=== PATIENT | male | born 1990 | race Caucasian/White ===

== ENCOUNTER 2021-08-21 14:09 | Emergency (ER) | payer OTHER ==
[~2021-08-21] VITALS: Ht 180.3 cm; Wt 130.2 kg
== END 2021-08-21 15:53 | disposition home or self-care (01) ==
LOC: ED 14:09
DX: B34.9 Viral infection, unspecified (principal); R51.9 Headache, unspecified; I10 Essential (primary) hypertension; M41.9 Scoliosis, unspecified; Z20.822 Contact with and (suspected) exposure to COVID-19
CPT/HCPCS: 80053; 85025; 96374; 96375; 99284-25; J1200; J1885; J2765; J7030; U0003

== ENCOUNTER 2021-10-02 08:35 | Emergency (ER) | payer OTHER ==
[~2021-10-02] VITALS: Ht 180.3 cm; Wt 133.2 kg
== END 2021-10-02 09:17 | disposition home or self-care (01) ==
LOC: ED 08:35
DX: R10.30 Lower abdominal pain, unspecified (principal)
CPT/HCPCS: 99283